=== PATIENT | female | born 1970 | race Caucasian/White ===

== ENCOUNTER → 2019-02-03 | Day surgery (SDC) | payer BC ==
--- NOTE | 2019-02-04 16:41 | PATH ---
Surgical Pathology Report Patient Name: MINDA CRUZ [facility]. Rec. #: [id number] /Age/Gender: 1970 (Age: 48) / F Account: [id number] Location: RADIOLOGY [facility] Taken: 02/03/2019 Received: 02/03/2019 Reported: 02/04/2019 Physicians: Shayna Montelongo M.D. Leslee Benz M.D. Specimen(s) Received BREAST CORE BIOPSY 9:00 Clinical History Palpable mass Mammographic findings/ultrasound findings: Highly suspicious/malignant 2.2 cm suspicious mass Final Diagnosis BREAST, LEFT, 9:00, ULTRASOUND GUIDED CORE BIOPSY: INVASIVE DUCTAL CARCINOMA, MODERATELY DIFFERENTIATED, MEASURING AT LEAST 9 MM IN THIS MATERIAL. Results of Estrogen Receptor (ER) and Progesterone Receptor (MN) studies performed at [facility] are as follows: ER (clone 6F11 mouse monoclonal antibody by [employer]): ~95% nuclear staining with strong intensity (Positive). MN (clone16 mouse monoclonal antibody by Leica): ~65-70% nuclear staining with moderate to strong intensity (Positive). Comment: Results of Her2 (IHC) & Ki-67 studies pending and will be reported separately.Findings discussed with Dr. Montelongo. Positive and negative controls (internal if applicable) show appropriate results. Formalin fixation and cold ischemic times are within current ASCO/CAP recommendations for ER, MN and Her2 testing. Electronically Signed Olivia Beltran M.D. Addendum Reported: 02/05/2019 Addendum Diagnosis Results of Her2 (IHC) & Ki-67 studies performed on block "1" at [place], [place] ([id number]) are as follows: Her2 IHC (EP3 from [employer], formerly known as [id number], using Raymond Polymer Refine detection kit): 1+ (Negative). Ki-67: ~20% (Intermediate proliferative index). Positive and negative controls (internal if applicable) show appropriate results. Olivia Beltran M.D. Gross Description Received in formalin labeled "left 9:00," are 3 ward-yellow, cylindrical portions of fibroadipose tissue ranging from 0.8-1.4 cm in length and averaging 0.1 cm in diameter. The specimens are submitted in toto in one cassette. Time to formalin fixation: Less than one minute Total formalin fixation time: Approximately 6 hours. /02/03/2019 saudi02/03/2019
== END | disposition home or self-care (01) ==
LOC: JMAMMO 11:32 → JRADUS-SUR 11:32 → EDSTATUS 11:45
PROVIDERS: ATTEND Obstetrics & Gynecology
PROC: 0HBU3ZX Excision of Left Breast, Percutaneous Approach, Diagnostic (ICD-10-PCS; principal; 2019-02-03)
DX: C50.912 Malignant neoplasm of unspecified site of left female breast (principal)
CPT/HCPCS: 19083; 76641-TC-LT; 77065-TC; 77066-TC; 87899; 88305-TC; 88342-TC; A4648; G0279-TC

== ENCOUNTER → 2019-03-01 | Day surgery (SDC) | payer BC ==
--- NOTE | 2019-03-03 09:11 | PATH ---
Surgical Pathology Report Patient Name: MINDA CRUZ [facility]. Rec. #: [id number] /Age/Gender: 1970 (Age: 48) / F Account: [id number] Location: [facility] Taken: 03/01/2019 Received: 03/01/2019 Reported: 03/09/2019 Physicians: Bandar Rust M.D. Specimen(s) Received HIGHLY SUSPICIOUS RIGHT BREAST MASS 2:00 O'CLOCK 6FN Clinical History Highly suspicious/malignant Newly diagnosed left breast cancer Final Diagnosis RIGHT BREAST 2:00, 6 CMFN, BIOPSY: INVASIVE DUCTAL CARCINOMA, WELL DIFFERENTIATED, MEASURING 0.4 CM IN LENGTH MEASURED ON THIS SLIDE. DUCTAL CARCINOMA IN SITU (DCIS) PRESENT, INTERMEDIATE NUCLEAR GRADE, CRIBRIFORM TYPE. Results of Estrogen Receptor (ER) and Progesterone Receptor (VA) studies performed on block "1" at [facility] are as follows: ER (clone 6F11 mouse monoclonal antibody by Leica): 100% nuclear staining with strong intensity (Positive). VA (clone16 mouse monoclonal antibody by Leica): 100% nuclear staining with strong intensity (Positive). Positive and negative controls (internal if applicable) show appropriate results. Formalin fixation and cold ischemic times are within current ASCO/CAP recommendations for ER, VA and Her2 testing. Comment: Immunohistochemical stains performed and interpreted at [facility] show the following results: smooth muscle myosin heavy chain and p63 show loss of the myoepithelial cell layer in the areas of invasive carcinoma. E-Cadherin show membranous staining of the tumor cells, supporting a ductal phenotype. Reports for Her 2 and Ki-67 to follow. Electronically Signed Brenda Marcelino M.D. Addendum Reported: 03/03/2019 Addendum Diagnosis Biomarker Studies Results of Her2 (IHC) & Ki-67 studies performed on this specimen at [place], [place] ([id number]) interpreted at [facility] are as follows: Her2 IHC (EP3 from [employer], formerly known as [id number], using Raymond Polymer Refine detection kit): 2+ (equivocal) Ki-67: <15% (low proliferative index) Her2 FISH to follow as an addendum report. Brenda Marcelino M.D. Addendum Reported: 03/09/2019 Addendum Diagnosis Her2 Analysis by FISH performed and interpreted at [facility] ([id number]) shows the following: INTERPRETATION: Negative Probe: Her2 - 2.2 Probe: CEP17 2.1 Ratio: 1.0 Approved scoring guideline >= 2.0 = Amplified <= 2.0 = Not amplified INTERPRETATION: See [facility]ge report for additional details ([id number]) Brenda Marcelino M.D. Gross Description Received in formalin labeled "right breast biopsy 2:00, 6 cmfn," is a 2.4 x 2.0 x 0.3 cm aggregate of multiple ward-yellow, irregular to cylindrical portions of fibroadipose tissue admixed with blood clot. The formalin is filtered and the specimen is entirely submitted in one cassette. Time to formalin fixation: 2 minutes Total formalin fixation time: Approximately 8 hours. 03/01/2019 saudi03/01/2019
== END | disposition home or self-care (01) ==
LOC: FRADUS-SUR 09:00
PROVIDERS: ATTEND Surgery Surgical Oncology
PROC: 0HBT3ZX Excision of Right Breast, Percutaneous Approach, Diagnostic (ICD-10-PCS; principal; 2019-03-01)
DX: C50.211 Malignant neoplasm of upper-inner quadrant of right female breast (principal); Z17.0 Estrogen receptor positive status [ER+]; N63.12 Unspecified lump in the right breast, upper inner quadrant
CPT/HCPCS: 19083; 77065-TC; 87899; 88305-TC; 88341-TC; 88342-TC; A4648

== ENCOUNTER 2019-03-16 07:00 | Inpatient (IN) | payer BC ==
[2019-03-11 13:42] VITALS: BMI 30.5
--- NOTE | 2019-03-11 14:09 | HP ---
Admitting History and Physical - Primary Care Physician PCP: Bandar Rust - Admission Chief Complaint: bilateral breast cancer History of Present Illness: Patient is a 48 yo female who noted left breast dimpling on self exam . Patient had a mammogram (12/2018)that revealed a left 8-9 o'clock highly suspicious lesion approx 2.2 cm. on US. The patient underwent a left core bx on 01/2019 which was c/w invasive ductal carcinoma. ER and MA positive HER 2 negative. An MRI done 02/25/2019 was c/w known cancer as well as suspicious enhancement at the right 1-2 o'clock position. Patient had a core bx of the right 2 o'clock position which was c/w invasive ductal carcinoma and DCIS ER and MA positive HER 2 negative. Patient is now presenting for bilateral mastectomy with bilateral snbx possible andx, lymphoscintogram and reconstruction. History Source: Patient Limitations to Obtaining History: No Limitations - Past Medical History Cardiovascular: Yes: HTN (borderline) ...LMP Comment: 02/18/19 ...: No - Smoking History Smoking history: Current every day smoker Have you smoked in the past 12 months: Yes Aproximately how many cigarettes per day: 10 - Alcohol/Substance Use Hx Alcohol Use: Yes (WINE-2 DAILY) Home Medications - Allergies Allergies/Adverse Reactions: Allergies Allergy/AdvReac Type Severity Reaction Status Date / Time No Known Allergies Allergy Verified 03/11/19 13:23 - Home Medications Home Medications: Ambulatory Orders NK [No Known Home Medication] 03/11/19 Family Disease History - Family Disease History Family Disease History: CA: Grandparent (mat GM breast ca 47) Review of Systems - Review of Systems Constitutional: reports: No Symptoms Cardiovascular: reports: No Symptoms Respiratory: reports: Cough Physical Examination Constitutional: Yes: Well Nourished, Calm Breast(s): Yes: Other (Full ptotic C-cup breasts. The left smaller then right with medial deformity and skin retraction. Palpable mass was noted left breast medially approx 2.5-3 cm. Left axillary fullness was noted. The right side is without suspicious palpable masses or adenopathy.) Problem List - Problems (1) Bilateral breast cancer Code(s): C50.911 - MALIGNANT NEOPLASM OF UNSP SITE OF RIGHT FEMALE BREAST; C50.912 - MALIGNANT NEOPLASM OF UNSPECIFIED SITE OF LEFT FEMALE BREAST Qualifiers: Estrogen receptor status: positive Patient sex: female Assessment/Plan Plan: Bilateral non nipple sparing mastectomy, bilateral snbx with lymphoscintogram, possible andx with reconstruction.
[2019-03-18] MEDS ORDERED: ceFAZolin SODIUM 1 GM VIAL ONE ×2 (09:27→10:36)
[2019-03-18] MEDS ORDERED: GENTAMICIN SO4 80 MG/2 ML VIAL ONE (09:27)
[2019-03-18] MEDS ORDERED: LIDOCAINE 1%/EPI 1:100000 (20 ML MULTI DOSE VIAL) ONE (10:00)
[2019-03-18] MEDS ORDERED: ISOSULFAN BLUE 10 MG/ML VIAL SQ ONE (10:00)
[2019-03-18] MEDS ORDERED: BUPIVACAINE LIPOSOME/PF (EXPAREL) 266 MG/20 ML VIAL ONE (10:12)
[2019-03-18] MEDS ORDERED: fentaNYL CITRATE 250 MCG/5 ML VIAL ONE ×2 (10:33→12:33)
[2019-03-18] MEDS ORDERED: SUCCINYLCHOLINE CHLORIDE 200 MG/10 ML SYRINGE ONE (10:33)
[2019-03-18] MEDS ORDERED: MIDAZOLAM HCL 2 MG/2 ML SINGLE DOSE VIAL ONE (10:33)
[2019-03-18] MEDS ORDERED: PROPOFOL 20 ML ONE (10:33)
[2019-03-18] MEDS ORDERED: ROCURONIUM BROMIDE 50 MG/5 ML SYRINGE ONE ×3 (10:33→13:33)
[2019-03-18] MEDS ORDERED: LIDOCAINE HCL/PF 2% SDV 5ML VIAL ONE (10:35)
[2019-03-18] MEDS ORDERED: HYDROmorphone HCL/PF 1 MG/ML AMP ONE (11:44)
[2019-03-18] MEDS ORDERED: NEOSTIGMINE METHYLSULFATE 0.5 MG/ML - 10 ML MDV ONE (13:34)
[2019-03-18] MEDS ORDERED: GLYCOPYRROLATE 0.2 MG/1 ML VIAL ONE (13:34)
[2019-03-18] MEDS ORDERED: ACETAMINOPHEN 325 MG TABLET (FP) PO PRN (14:09)
[2019-03-18] MEDS ORDERED: ONDANSETRON 4 MG/2 ML VIAL IVPUSH PRN ×2 (14:09→15:29)
[2019-03-18] MEDS ORDERED: DEXTROSE 5%-0.45% SALINE 1,000 ML IV SCH (14:15)
--- NOTE | 2019-03-18 14:56 | OP ---
DATE OF OPERATION: 03/18/2019 PREOPERATIVE DIAGNOSIS: Bilateral breast cancer left 9 o'clock overlapping regions and right upper inner quadrant. POSTOPERATIVE DIAGNOSIS: Bilateral breast cancer left 9 o'clock overlapping regions and right upper inner quadrant. PROCEDURE: Bilateral total mastectomies with bilateral axillary sentinel lymph node biopsies with bilateral prepectoral director of procurement reconstructions by Dr. Desouza. ANESTHESIA: General endotracheal anesthesia. PRIMARY SURGEON: Denis Rust MD BANKING REPRESENTATIVE: LULA Valentine PRIMARY SURGEON: For the bilateral prepectoral implant reconstruction with expanders with Dr. Denis Desouza. There were no complications. HISTORY: Briefly, the patient is a 48-year-old postmenopausal white female of [place] descent. She has a family history with her maternal grandmother who had breast cancer at age 47. The patient noted some medial left breast skin dimpling and underwent mammography showing a suspicious mass on the left breast 8-9 o'clock region measuring about 3.2 cm, and core biopsy showed a moderately differentiated, invasive duct cancer, which was ER/IL positive, HER2/carla negative. MRI showed a separate lesion in the right breast 2 o'clock aspect, and she underwent an ultrasound core biopsy of the right breast 2 o'clock density, which came back as a well-differential invasive duct cancer, which was ER/IL positive, HER2/carla negative. The patient required a mastectomy on the left side due to extent of the cancer and chose to have a mastectomy on the right at the same sitting and was seen by Dr. Desouza who recommended director of procurement reconstruction. DESCRIPTION OF PROCEDURE: The patient was brought in for the procedure on March 18, 2019. She first underwent bilateral lymphoscintigraphies with periareolar injections of Technetium 99 bilaterally in both nipple areolar complexes and was brought to the holding area at [facility]. In the holding area, site verification was made, and informed consent was obtained. She was marked preoperatively by Dr. Desouza for the mastectomies and brought into the operating room. She was laid on the OR table in the supine position. Venodynes were placed on the lower extremities prior to induction. She received 2 g of Ancef prior to incision. She underwent general endotracheal anesthesia. Both breasts were sterilely prepped and draped in the usual fashion. Lymphazurin blue 3 mL was injected intradermally around the periareolar regions of both breast nipple areolar complexes, and massage was instituted. Time-out was performed. The right sentinel lymph node was 1st performed, and an incision was made just below the hair-bearing area of the right axilla, and dissection was undertaken, and 2 blue hot lymph nodes were easily found on the level 1 of the right axilla. The 1st sentinel lymph node had a 10-second gamma count of 16,197 and 2nd sentinel lymph node had a 10-second gamma count of 2279. No other blue or hot nodes were found, and background count after removal of these 2 nodes was 59. They were both sent down to Pathology for frozen section. A nonsentinel node had also been removed and was sent for permanent section in formalin. Frozen section of both sentinel nodes came back negative, so no further nodes were removed. At this point, gloves and instruments were changed, and the left axillary sentinel lymph node biopsy was performed. Incision was made just below the hair-bearing area of the left axilla, and dissection was undertaken, and a blue lymphatic was seen coursing to a blue, hot lymph node in the level 1 region of the left axilla. Had a 10-second gamma count of 3320 and this was sent to Pathology for frozen section. A 2nd hot node was found, which was not blue in the level 2 region of the left axilla with a 10-second gamma count of 3119. Frozen section of both nodes came back negative. There were a couple of firm nodes felt as well in the level 1 region of the left axilla, and these were sent separately to Pathology as nonsentinel lymph nodes. They were not blue and had no hot counts, and these were sent in formalin. Hemostasis was achieved. At this point, the left total mastectomy was 1st performed through an elliptical incision skin-sparing technique encompassing the entire nipple areolar complex. Skin flaps were raised superiorly to the level of the clavicle, medially to the level of the sternum, laterally to the level of the latissimus, and inferiorly below the level of the inframammary fold. The breast was taken out off the pectoralis major muscle from medial to lateral and completely removed intact. It was oriented with a long lateral, short superior suture and weighed to allow for appropriate cosmetic result. Specimen radiograph was performed on the breast showing removal of the clip in question. Hemostasis was achieved, and the skin flaps were trimmed for good cosmetic result. The wound was copiously irrigated with warm, sterile saline. At this point, the right mastectomy was performed again with a skin-sparing technique through an elliptical incision encompassing the entire nipple areolar complex. Separate instruments were used on the right side. Skin flap was raised using electrocautery raising the flap superiorly to the level of the clavicle, medially to the level of the sternum, laterally to the level of the latissimus, and inferiorly below the level of the inframammary fold. The breast was taken out off the pectoralis major muscle from medial to lateral and completely removed intact. It was oriented with a long lateral, short superior suture and weighed to allow for appropriate cosmetic result. Specimen radiograph showed removal of the clip in question. Skin flaps were trimmed for good cosmetic result removing all of the visual breast tissue. Hemostasis was achieved, and the wound was copiously irrigated with warm, sterile saline. At this point, Dr. Desouza became the primary surgeon, and he performed bilateral prepectoral director of procurement reconstructions using air to expand the director of procurement. All wounds will be closed separately by Plastic Surgery using interrupted 3-0 V-Lock suture. Sterile dressing will be applied over the wounds, and drains will be placed around each director of procurement, brought through separate stab incisions on the lateral skin flaps, and secured into place using a 3-0 nylon suture. All sponge and needle counts were correct at the end of the case, and estimated blood loss was about 100 mL at the end of the mastectomy. We did use the Spy skin perfusion device showing good skin perfusion bilaterally. The patient will be extubated and recovered in the post anesthesia care unit and will be admitted postoperatively for pain and wound management. DENIS RUST M.D. [id number]
[2019-03-18] MEDS ORDERED: CEFAZOLIN 1 GM/D5W 1 GM/50 ML BAG IVPB SCH (15:00)
--- NOTE | 2019-03-18 15:09 | OP ---
Operative Note - Note: Operative Date: 03/18/19 Pre-Operative Diagnosis: chest wall abnormality s/p b/l Mastectomies Operation: bilateral immediate breast reconstruction with tissue expanders utilizing alloderm and mesh Post-Operative Diagnosis: Same as Pre-op Surgeon: Shar Desouza Grocery Shopper: Lenore Ramon Anesthesiologist/CROP PULLER: Emiliano Hitchcock Anesthesia: General Estimated Blood Loss (mls): 100 Drains & Tubes with Location: right chest wall JPx2. Left chest wall JPx2 Fluid Volume Replaced (mls): 1,900 Operative Report Dictated: Yes
--- NOTE | 2019-03-18 15:12 | SURG ---
Surgery Obstetric Assistant Note Obstetric Assistant: Lenore Ramon PA-C Date of Service: 03/18/19 Diagnosis: chest wall abnormality s/l b/l mastectomies Procedure: bilateral immediate breast reconstruction with tissue expanders utilizing alloderm and mesh I was present for the entirety of the operative procedure. For further detail, please refer to operative report. Visit type - Case Type Case Type: Scheduled - Emergency Emergency Visit: No - New patient This patient is new to me today: Yes Date on this admission: 03/18/19
[2019-03-18] MEDS ORDERED: PROMETHAZINE HCL 25 MG/1 ML VIAL IVPUSH PRN (15:29)
[2019-03-18] MEDS ORDERED: ONDANSETRON 4 MG/2 ML VIAL ONE (15:54)
[2019-03-18] MEDS: CEFAZOLIN 1 GM/D5W 1 GM/50 ML BAG IVPB SCH (17:16)
[2019-03-18] MEDS: oxyCODONE HCL 5 MG TABLET PO PRN (21:54)
[2019-03-18] MEDS ORDERED: ZOLPIDEM TARTRATE 5 MG TABLET PO PRN (22:00)
[2019-03-19] MEDS: CEFAZOLIN 1 GM/D5W 1 GM/50 ML BAG IVPB SCH ×5 (00:07→23:52)
[2019-03-19] MEDS: oxyCODONE HCL 5 MG TABLET PO PRN ×3 (03:45→20:16)
[2019-03-19 08:35] LABS: HEMATOCRIT 36.5 % (32.4-45.2); HEMOGLOBIN 12.6 GM/dl (10.7-15.3); MCH 34.8 pg (25.7-33.7); MCHC 34.6 g/dl (32.0-36.0); MEAN CELL VOLUME 100.3 fl (80-96); MEAN PLT VOLUME 8.9 fl (7.5-11.1); PLATELET COUNT 230 K/MM3 (134-434); RBC 3.64 M/mm3 (3.60-5.2); RDW 12.7 % (11.6-15.6); WHITE BLOOD COUNT 17.1 K/mm3 (4.0-10.8)
--- NOTE | 2019-03-19 09:19 | PN ---
Progress Note, Physician Chief Complaint: S/P bilateral mastectomy with snbx and tissue or assistant reconstruction POD#1 History of Present Illness: Patient is comfortable this am with good pain control. She has been tolerating po fluids well and has been voiding normally. - Current Medication List Current Medications: Active Medications Acetaminophen (Tylenol -) 650 mg PO Q4H PRN PRN Reason: FEVER Heparin Sodium (Porcine) (Heparin -) 5,000 unit SQ BID SONG Dextrose/Sodium Chloride (D5-1/2ns -) 1,000 mls @ 100 mls/hr IV ASDIR SONG Last Admin: 03/18/19 17:15 Dose: 100 mls/hr Cefazolin Sodium (Ancef 1 Gm Premixed Ivpb -) 1 gm in 50 mls @ 100 mls/hr IVPB Q6H SONG Last Admin: 03/19/19 06:07 Dose: 100 mls/hr Ondansetron HCl (Zofran Injection) 4 mg IVPUSH Q6H PRN PRN Reason: NAUSEA AND/OR VOMITING Last Admin: 03/18/19 15:53 Dose: 4 mg Oxycodone HCl (Roxicodone -) 5 mg PO Q4H PRN PRN Reason: PAIN LEVEL 1-5 Last Admin: 03/18/19 21:54 Dose: 5 mg Oxycodone HCl (Roxicodone -) 10 mg PO Q4H PRN PRN Reason: PAIN LEVEL 6-10 Last Admin: 03/19/19 03:45 Dose: 10 mg Zolpidem Tartrate (Ambien -) 5 mg PO HS PRN PRN Reason: Insomnia - Objective Vital Signs: Vital Signs Temperature 98.2 F 03/19/19 05:00 Pulse Rate 73 03/19/19 05:00 Respiratory Rate 18 03/19/19 05:00 Blood Pressure 103/63 03/19/19 05:00 O2 Sat by Pulse Oximetry (%) 95 03/19/19 05:00 Constitutional: Yes: Well Nourished, Calm Breast(s): Yes: Other (Bilateral flaps are dusky and cool to touch. The steristrips are in place without discharge or erythema. JPs x 4 with serosanginous discharge noted bilaterally.) Labs: CBC, BMP 03/19/19 06:40 Problem List - Problems (1) Bilateral breast cancer Code(s): C50.911 - MALIGNANT NEOPLASM OF UNSP SITE OF RIGHT FEMALE BREAST; C50.912 - MALIGNANT NEOPLASM OF UNSPECIFIED SITE OF LEFT FEMALE BREAST Qualifiers: Estrogen receptor status: positive Patient sex: female Assessment/Plan Assessment Bilateral mastectomy with snbx and tissue or assistant reconstruction POD#1 Plan: OOB today with assistance Barehugger to anterior chest when in bed Continue IV axbx and pain meds as ordered. Case discussed with Dr Rust.
[2019-03-19] MEDS: HEPARIN NA (PORCINE) 5,000 UNITS/ML 1ML VIAL SQ SCH ×3 (09:34→21:38)
--- NOTE | 2019-03-19 09:39 | PN ---
Progress Note (short form) - Note Progress Note: ANESTHESIA POSTOP 48 YO FEMALE POD#1 S/P BL MASTECTOMY, INSERTION OF TISSUE EXPANDERS, RECONSTRUCTION, GETA Patient resting in bed. Tolerating liquid PO. Pain adequately controlled. Reports some pressure but tolerable. VSS, Afebrile Encouraged ambulation and use of IS. Continue current care. No anesthetic complications.
--- NOTE | 2019-03-19 10:00 | PN ---
Progress Note (short form) - Note Progress Note: Surgery S/P bilateral mastectomy with snbx and tissue card player reconstruction POD#1 History of Present Illness: Patient seen and examined at bedside with no complaints. States her pain is controlled. She is tolerating her diet, voiding and denies any CP, SOB, Fever, Chills, N/V. Vital Signs: Vital Signs Temperature 98.2 F 03/19/19 05:00 Pulse Rate 73 03/19/19 05:00 Respiratory Rate 18 03/19/19 05:00 Blood Pressure 103/63 03/19/19 05:00 O2 Sat by Pulse Oximetry (%) 95 03/19/19 05:00 CBC, BMP 03/19/19 06:40 PE: A&Ox3, NAD Breast(s): Bilateral flaps are dusky and cool to touch. Steristrips are in place with surrounding tissue intact and no evidence of tracking erythema or discharge. JPs x 4 with serosanginous discharge noted bilaterally. B/L LE compartments soft, supple and non-tender with +2 DP pulses Problem List - Problems (1) Bilateral breast cancer Assessment/Plan: Bilateral mastectomy with snbx and tissue card player reconstruction POD#1 with elevated WBCs and afebrile. Plan: - Trend daily labs -OOB today with assistance -Barehugger set on high to anterior chest when in bed/chair. -Continue IV axbx and pain meds as ordered. Evaluation and plan discussed with Dr Desouza. Code(s): C50.911 - MALIGNANT NEOPLASM OF UNSP SITE OF RIGHT FEMALE BREAST; C50.912 - MALIGNANT NEOPLASM OF UNSPECIFIED SITE OF LEFT FEMALE BREAST Qualifiers: Estrogen receptor status: positive Patient sex: female
[2019-03-20] MEDS: oxyCODONE HCL 5 MG TABLET PO PRN (00:41)
[2019-03-20 00:49] VITALS: BP 101/68
[2019-03-20 06:25] VITALS: PULSE 73; TEMP 98.6
[2019-03-20] MEDS: CEFAZOLIN 1 GM/D5W 1 GM/50 ML BAG IVPB SCH (06:34)
[2019-03-20] MEDS: HEPARIN NA (PORCINE) 5,000 UNITS/ML 1ML VIAL SQ SCH (09:58)
--- NOTE | 2019-03-24 14:26 | PATH ---
Surgical Pathology Report Patient Name: MINDA CRUZ Med. Rec. #: [id number] /Age/Gender: 1970 (Age: 48) / F Account: [id number] Location: [facility] Taken: 03/18/2019 Received: 03/18/2019 Reported: 03/24/2019 Physicians: Bandar Rust M.D. Specimen(s) Received A: RIGHT AXILLARY SENTINEL NODE # 1(FS) B: RIGHT AXILLARY SENTINEL NODE # 2 (FS) C: LEFT AXILLARY SENTINEL NODE # 1 (FS) D: LEFT AXILLARY SENTINEL NODE # 2 (FS) E: RIGHT AXILLARY NON-SENTINEL NODE F: LEFT AXILLARY NON-SENTINEL NODES G: LEFT BREAST H: LEFT BREAST ANTERIOR MAGIN I: LEFT BREAST DEEP MARGIN J: RIGHT BREAST K: RIGHT BREAST ANTERIOR MARGIN Clinical History Bilateral breast cancer Intraoperative Consult Diagnosis A. Right axillary sentinel node #1, frozen section: One lymph node negative for carcinoma (0/1). B. Right axillary sentinel node #2, frozen section: One lymph node negative for carcinoma (0/1). C. Left axillary sentinel node #1, frozen section: One lymph node negative for carcinoma (0/1). D. Left axillary sentinel node #2, frozen section: One lymph node negative for carcinoma (0/1). Dr. Bautista, 03/18/19 Final Diagnosis A. lymph node, right axillary sentinel #1, excision (FS): One lymph node, negative for metastatic carcinoma (0/1). B.lymph node, right axillary sentinel #2, excision (FS): One lymph node, negative for metastatic carcinoma (0/1). C. lymph node, left axillary sentinel #1, excision (FS): One lymph node, negative for metastatic carcinoma (0/1). D. lymph node, LEFT axillary sentinel #2, excision (FS): One lymph node, negative for metastatic carcinoma (0/1). e. lymph node, right axillary non-sentinel, excision : One lymph node, negative for metastatic carcinoma (0/1). F. lymph nodeS, LEFt axillary non-sentinel, excision : Metastatic carcinoma involving one of three lymph nodes (1/3); the largest focus of metastatic carcinoma measures 0.4 mm in greatest dimension (micrometastasis). No extranodal extension is identified. G. breast, left, total mastectomy: Invasive ductal carcinoma, moderately differentiated (tubule score: 3/3, nuclear grade: 2/3, mitotic score: 2/3, total score: 7/9; Venetie grade 2), measuring 2.7 cm in greatest dimension, MICROSCOPICALLY, present in the lower inner quadrant (LIQ). Invasive carcinoma EXTENDS TO THE DEEP MARGIN AND involves skeletal muscle. see specimens H and I for final margins. Ductal carcinoma in situ (DCIS), Micropapillary and cribriform type, intermediate nuclear grade with moderate necrosis is present admixed with invasive carcinoma in the LIQ and focally away from it in the upper inner quadrant (UIQ). Nipple, skin and anterior soft tissue margin are uninvolved by carcinoma. lymphovascular invasion is IDENTIFIED. One benign intramammary lymph node (0/1). Pathologic stage (pTNM): pT2 pN1(mi). see also invasive carcinoma case Summary below. H. breast, left, anterior margin, excision: Benign fibroadipose tissue. I. breast, left, deep margin, excision: benign fibroadipose tissue and skeletal muscle; negative for carcinoma. J. breast, right, total mastectomy: Invasive ductal carcinoma, well differentiated (tubule score: 2/3, nuclear grade: 2/3, mitotic score: 1/3, total score: 5/9; Venetie grade 1), present in the upper inner quadrant (uiq), measuring 0.8 cm in greatest dimension, microscopically. Ductal carcinoma in situ (DCIS), Micropapillary, flat and cribriform type, intermediate nuclear grade IS present admixed with invasive carcinoma. Lobular carcinoma in situ (LCIS), classical type. Surgical margins are uninvolved by carcinoma; invasive carcinoma is aT 5 mm from the closest (anterior) margin and DCIS is at 2 mm from the closest (anterior) margin. see also specimen K For final anterior margin. Nipple and skin are uninvolved by carcinoma. No lymphovascular invasion is identified. Remaining breast tissue shows sclerosing adenosis, columnar cell change, small fibroadenoma and associated calcifications. PRIOR BIOPSY SITE CHANGES ARE IDENTIFIED. Pathologic stage (pTNM): pT1b pN0. se also invasive carcinoma Case summary below. K. Breast, right, anterior margin, excision: Benign fibroadipose tissue. Comments Breast Invasive Carcinoma: Surgical Pathology Case Summary (Based on AJCC TNM 8 th edition) LEFT BREAST Procedure __X_ Total mastectomy (including nipple-sparing and skin-sparing mastectomy) Specimen Laterality _X_ Left Tumor Size _X_ Greatest dimension of largest invasive focus >1 mm (millimeters): 27 mm Histologic Type _X_ Invasive carcinoma of no special type (ductal, not otherwise specified) Histologic Grade (Venetie Histologic Score) Glandular (Acinar)/Tubular Differentiation _X_ Score 3 (<10% of tumor area forming glandular/tubular structures) Nuclear Pleomorphism _X_ Score 2 Mitotic Rate _X_ Score 2 Overall Grade _X_ Grade 2 (scores of 6 or 7) Tumor Focality _X_ Single focus of invasive carcinoma Ductal Carcinoma In Situ (DCIS) _X_ DCIS is present in specimen _X_ Negative for extensive intraductal component (EIC) Tumor Extension Skeletal Muscle _X_ Carcinoma invades skeletal muscle Note: Invasion into pectoralis muscle is not considered chest wall invasion, and cancers are not classified as T4a unless there is invasion deeper than this muscle. Margins Invasive Carcinoma Margins _X_ Uninvolved by invasive carcinoma _X_ Cannot be determined: invasive carcinoma extends to the deep margin in mastectomy specimen (G). Final deep margin (I) is uninvolved by carcinoma. DCIS Margins _X_ Uninvolved by DCIS Distance from closest margin (millimeters): 3 mm from deep margin in mastectomy specimen (G). Final deep margin (I) is uninvolved by DCIS. Regional Lymph Nodes _X__ Involved by tumor cells Number of Lymph Nodes with Macrometastases (>2 mm): 0 Number of Lymph Nodes with Micrometastases (>0.2 mm to 2 mm and/or >200 cells): 1 Number of Lymph Nodes with Isolated Tumor Cells (=0.2 mm and =200 cells): 0 Size of Largest Metastatic Deposit (millimeters): 0.4 mm Extranodal Extension: _X_ Not identified Treatment Effect _X_ No known presurgical therapy Lymphovascular Invasion _X_ Present Pathologic Stage Classification (pTNM, AJCC 8th Edition) Primary Tumor (Invasive Carcinoma) (pT) _X_ pT2: Tumor >20 mm but =50 mm in greatest dimension Regional Lymph Nodes (pN) Category (pN) _X_ pN1mi: Micrometastases (approximately 200 cells, larger than 0.2 mm, but none larger than 2.0 mm Biomarker Studies Results of ER and NH studies performed on prior biopsy ([id number]) at [facility] are as follows: ER (clone 6F11 mouse monoclonal antibody by [employer]):95 % nuclear staining with strong intensity (positive). NH (clone16 mouse monoclonal antibody by [employer]) : 65-70 % nuclear staining with moderate to strong intensity (positive). Results of Her2 (IHC) & Ki-67 studies performed on prior biopsy ([id number]) at [place], [place] ([id number]) are as follows: Her2 IHC (EP3 from [employer], formerly known as [id number], using Raymond Polymer Refine detection kit): 1+ (negative). Ki67: ~20% (intermediate proliferative index). Breast Invasive Carcinoma: Surgical Pathology Case Summary (Based on AJCC TNM 8 th edition) RIGHT BREAST: Procedure _X_ Total mastectomy (including nipple-sparing and skin-sparing mastectomy) Specimen Laterality _X_ Right Tumor Size _X_ Greatest dimension of largest invasive focus >1 mm (millimeters): 8 mm Histologic Type _X_ Invasive carcinoma of no special type (ductal, not otherwise specified) Histologic Grade (Venetie Histologic Score) Glandular (Acinar)/Tubular Differentiation _X_ Score 2 (10% to 75% of tumor area forming glandular/tubular structures) Nuclear Pleomorphism _X_ Score 2 Mitotic Rate _X_ Score 1 Overall Grade _X_ Grade 1 (scores of 3, 4, or 5) Tumor Focality _X_ Single focus of invasive carcinoma Ductal Carcinoma In Situ (DCIS) _X_ DCIS is present in specimen _X_ Negative for extensive intraductal component (EIC) Margins Invasive Carcinoma Margins _X_ Uninvolved by invasive carcinoma Distance from closest margin (millimeters): 5 mm from closest anterior margin in mastectomy specimen (J). Final anterior margin (K) is negative for carcinoma. DCIS Margins _X_ Uninvolved by DCIS Distance from closest margin (millimeters): 2 mm from closest anterior margin in mastectomy specimen (J). Final anterior margin (K) is negative for DCIS. Regional Lymph Nodes _X_ Uninvolved by tumor cells Number of Lymph Nodes Examined: 3 Number of Blodgett Nodes Examined: 2 Treatment Effect _X_ No known presurgical therapy Lymphovascular Invasion _X_ Not identified Pathologic Stage Classification (pTNM, AJCC 8th Edition) Primary Tumor (Invasive Carcinoma) (pT) _X_ pT1b: Tumor >5 mm but =10 mm in greatest dimension Regional Lymph Nodes (pN) Category (pN) _X_ pN0: No regional lymph node metastasis identified or ITCs only Biomarker Studies Results of ER and NH studies performed on prior biopsy ([id number]) at [facility] are as follows: ER (clone 6F11 mouse monoclonal antibody by [employer]): 100 % nuclear staining with strong intensity (positive). NH (clone16 mouse monoclonal antibody by [employer]) : 100 % nuclear staining with strong intensity (positive). Results of Her2 (IHC) & Ki-67 studies performed on prior biopsy ([id number]) at [place], [place] ([id number]) are as follows: Her2 IHC (EP3 from [employer], formerly known as [id number], using Raymond Polymer Refine detection kit): 2+ (equivocal). Ki67: < 15% (low proliferative index). Results of Her2 FISH studies performed on prior biopsy ([id number]) at [place], [place] ([id number]) are as follows: Her2: 2.2 CEP17: 2.1 Ratio: 1.0 Interpretation: negative. Electronically Signed Lenore Etienne M.D. Gross Description A. Received fresh for frozen section labeled "right axillary sentinel node #1" is a pink-ward lymph node measuring 1.5 x 1.2 x 0.8 cm. The specimen is bisected and frozen section is performed on the specimen. The frozen section residue is entirely submitted in one cassette. B. Received fresh for frozen section labeled "right axillary sentinel node #2" is a pink-ward lymph node measuring 1 x 0.7 x 0.7 cm. The specimen is bisected and frozen section is performed on the specimen. The frozen section residue is entirely submitted in one cassette. C. Received fresh for frozen section labeled "left axillary sentinel node #1" is a pink-ward lymph node measuring 0.7 x 0.5 x 0.4 cm. Frozen section is performed on the specimen. The frozen section residue is entirely submitted in one cassette. D. Received fresh for frozen section labeled "left axillary sentinel node #2" is a pink-ward lymph node measuring 0.7 x 0.5 x 0.3 cm. Frozen section is performed on the specimen. The frozen section residue is entirely submitted in one cassette. E. Received in formalin labeled "right axillary non-sentinel node" is a 1.5 x 1.0 x 0.6 cm, ward, irregular lymph node with attached fat. The specimen is entirely submitted one cassette. F. Received in formalin labeled "left axillary non-sentinel nodes" are 3 irregular ward lymph nodes with attached fat, ranging from 1.3-2.5 cm in greatest dimension. The specimen is entirely submitted in 3 cassettes as follows: F1-F3- one bisected lymph node, each. G. Received in formalin, labeled "left breast" is a 788 gram, 17.0 x 17.0 x 5.0 cm mastectomy specimen with a short suture marking the superior aspect and a long suture marking the lateral aspect, per the surgeon. The anterior surface displays a 6 x 4 cm ward, elliptical portion of skin with a 1.5 cm in diameter nipple. The deep margin is inked black and the anterior soft tissue margin is inked blue. The specimen is serially sectioned from medial to lateral. Sectioning reveals a 3.4 x 3.3 x 3 cm ward, firm mass in the lower inner quadrant (LIQ). The mass abuts the deep margin and is at 1 cm from anterior soft tissue margin. The remaining breast parenchyma displays multifocal dense white fibrous tissue. Equipment Maint Tech sections are submitted in 14 cassettes as follows: 1-serially sectioned nipple; 2-skin; 3-mass, full-face section with deep margin; 4-5- bisected section of mass, with deep margin; 6-7- bisected section of mass with anterior and deep margins, 8- breast parenchyma adjacent to mass, LIQ; 9-10-upper inner quadrant; 11-12-lower outer quadrant; 13-14- upper outer quadrant. Time to formalin fixation: Not given Total formalin fixation time: Approximately 36 hours. H. Received in formalin labeled "left anterior margin" is a 6 x 4 x 1 cm portion of fibroadipose tissue with a suture marking the biopsy cavity side, per surgeon. The new margin is inked in blue and the specimen is serially sectioned. Sectioning reveals predominantly adipose tissue. Entirely submitted in 9 cassettes. I. Received in formalin labeled "left deep margin" is a 2.5 x 2.5 x 1 cm portion of fibroadipose tissue with a suture marking the biopsy cavity side, per surgeon. The new margin is inked in blue and the specimen is serially sectioned. Sectioning reveals adipose tissue and brown ward tissue. Entirely submitted in 2 cassettes. J. Received in formalin, labeled "right breast" is a 799 gram, 18.0 x 17.0 x 6.0 cm. mastectomy specimen and a 10 x 8 x 2 cm aggregate of undesignated fibroadipose tissue. A short suture syed the superior aspect and a long suture syed the lateral aspect, per the surgeon. The anterior surface displays a 6 x 5 cm ward, elliptical portion of skin with a 1.5 cm in diameter nipple. The deep margin is inked black and the anterior soft tissue margin is inked blue. The specimen is serially sectioned from medial to lateral. Sectioning reveals a ward firm mass measuring 1.0 x 1.0 x 0.5 cm in the upper inner quadrant (UIQ). The mass shows associated hemorrhage and fibrosis consistent with prior biopsy and a metallic clip is identified. The mass abuts the anterior margin. The remainder of breast parenchyma shows multifocal dense fibrous to firm nodular tissue. Equipment Maint Tech sections are submitted in 17 cassettes as follows: 1-serially sectioned nipple; 2-skin; 3,4-mass with anterior margin; 5-7- fibrous to firm tissue surrounding mass; 8-11- fibrous to firm tissue, LIQ; 12-13- fibrous to firm tissue, LOQ; 14-15- fibrous to firm tissue, UOQ; 16-17- undesignated fibroadipose tissue fragments. Time to formalin fixation: Not given Total formalin fixation time: Approximately 36 hours. K. Received in formalin labeled "right anterior margin" is a 12 x 8 x 2 cm portion of fibroadipose tissue with a suture marking the biopsy cavity side, per surgeon. The new margin is inked in blue and the specimen is serially sectioned. Sectioning reveals predominantly adipose tissue. Equipment Maint Tech sections are submitted in 6 cassettes. MLSManan/03/20/2019 sanalexandra/03/18/2019
--- NOTE | 2019-04-01 09:48 | OP ---
DATE OF OPERATION: 03/18/2019 PREOPERATIVE DIAGNOSES: 1. Bilateral acquired chest wall deformity status post bilateral mastectomy. 2. Personal history of genetic carcinoma. 3. Absent bilateral breasts. POSTOPERATIVE DIAGNOSES: 1. Bilateral acquired chest wall deformity status post bilateral mastectomy. 2. Personal history of genetic carcinoma. 3. Absent bilateral breasts. OPERATIVE PROCEDURE: 1. Right breast immediate reconstruction utilizing immediate insertion of tissue green energy marketing analyst, AlloDerm reconstruction and mesh placement. 2. Left breast immediate reconstruction utilizing immediate insertion of tissue green energy marketing analyst, AlloDerm reconstruction and mesh placement. 3. Intravenous injection of indocyanine green dye and intraoperative diagnostic evaluation of noncoronary intraoperative fluorescein vascular angiography x2 as well as interpretation of angiogram intraoperatively. OPERATIVE INDICATION: Patient is a 48-year-old female who was brought to the operating room by Dr. Bandar Rust for bilateral mastectomy for significant genetic history of breast carcinoma. The patient elected to undergo bilateral mastectomy with the above reconstructive procedure in a prepectoral position. The risks and benefits of surgical versus nonsurgical alternatives as well as material complications were described to the patient on multiple occasions preoperatively. She was marked in the standing position preoperatively in the holding area and all questions were asked and answered. OPERATIVE PROCEDURE IN DETAIL: The patient was taken to the operating room by Dr. Rust where she was placed supine on the operating room table. Both arms were extended and padded. Venodyne boots were placed and all areas were protected and padded. Dr. Rust will dictate his portion of the operation under separate cover. At this point Dr. Rust performed bilateral mastectomy with an inframammary incision on both right and left breasts which will be dictated separately. Upon completion of the mastectomies the wounds were copiously irrigated and hemostasis was meticulously obtained throughout the pocket and both chest hardy. On the back table as the mastectomies were being performed I created reconstructive procedures by utilizing a full coverage reconstructive tissue green energy marketing analyst. The patient had bilateral tissue expanders placed with SSP AlloX2 tissue expanders with low pole plus mid height profile was used for the reconstruction. These were filled with 240 cc on both breasts. The patient also had full anterior coverage of the device with AlloDerm and Tourjiveen ProGrip mesh was placed in a posterior fashion cutting out the mesh slightly larger than the back side of the tissue green energy marketing analyst. The gripping portion of the mesh was placed away from the tissue green energy marketing analyst in order to adhere to the pectoralis muscle. At this point a sheet of AlloDerm was selected. In this case a 16 x 20 perforated thick AlloDerm was used to cover the anterior surface of the entire tissue green energy marketing analyst and then was sutured down to the underlying mesh over the tissue green energy marketing analyst and suturing it on the back side. Multiple 2-0 Vicryl sutures were placed around the circumference of the tissue green energy marketing analyst creating an entire enclosure for the new tissue green energy marketing analyst device. Triple-antibiotic solution and Betadine were used to cover this device and the AlloDerm was soaked in triple-antibiotic solution x3. Both devices were created on the back table and ready for reconstruction. The exact same procedure was carried out symmetrically on the opposite left side in order to create the same size SSP AlloX2 device with the same size tissue green energy marketing analyst. Once the mastectomies were completed, the left breast was attended to first. The device was transferred to the left chest wall and the rim which extended beyond the tissue green energy marketing analyst itself was then attached to the chest wall using 0 V-Loc suture in a running fashion from the medial to the lateral side to tack the mesh down to the pectoralis muscle at the inframammary fold and laterally and medially in order to prevent motion of the device. Good shape and contour were seen in the shape of the breast at this point. Skin flaps showed viability. The Spy intraoperative angiogram was performed at this point by injecting 4 mL of indocyanine green dye into the intravascular system and then an intraoperative angiogram was used to show good blood flow to the skin and nipple-areolar complex on both chest hardy. This was repeated before placement of the tissue green energy marketing analyst and then after the tissue green energy marketing analyst was placed. Both showed good blood flow. The Spy imaging system was brought into the field. The skin flowed to the right and left breasts and the nipple-areolar complex, and the entire skin flaps were evaluated and seen to be viable with good blood flow. The patient had the 2nd tissue green energy marketing analyst placed into the right chest wall in the exact same fashion, suturing a 0 V-Loc suture in running fashion from medial to lateral, attaching the posterior aspect of the mesh down to the chest wall. Once the tissue expanders were verified in good position and shape and contour were seen the skin flaps were draped over the tissue green energy marketing analyst and down into their new anatomic position. The skin edges were trimmed. A 15 Reggie drain was threaded through a separate stab wound around the entire circumference of the tissue green energy marketing analyst itself and sutured into position. Again, copious irrigation and hemostasis were obtained and then attention was turned to the closure. Using 3-0 PDS suture on the deep dermis and tissue the deep layer was repaired with interrupted sutures and then a 4-0 Biosyn suture was used in a subcuticular fashion to repair the skin. Biopatch and Dermabond with Steri-Strips were placed over the drain and suture line. A compression dressing with fluff dressings, ABD gauze and a Surgi-Bra were placed. She was then awakened, extubated and transferred to the recovery room in satisfactory condition and showed excellent contour and excellent result at this point. ADDENDUM: The patient's breast tissue removal was left breast 706 g of tissue, right breast 779 g of tissue by Dr. Rust. Leslee [id number]
== END 2019-03-20 12:13 | disposition home or self-care (01) | DRG 581 ==
LOC: FM/S 03-18 09:20
PROVIDERS: ADMIT Surgery Surgical Oncology; ATTEND Surgery Surgical Oncology
PROC: 0HHV0NZ Insertion of Tissue Expander into Bilateral Breast, Open Approach (ICD-10-PCS; 2019-03-18)
PROC: 0HRV0JZ Replacement of Bilateral Breast with Synthetic Substitute, Open Approach (ICD-10-PCS; 2019-03-18)
PROC: 4A1GXSH Monitoring of Skin and Breast Vascular Perfusion using Indocyanine Green Dye, External Approach (ICD-10-PCS; 2019-03-18)
PROC: 0HTV0ZZ Resection of Bilateral Breast, Open Approach (ICD-10-PCS; principal; 2019-03-18 11:27)
PROC: 07B60ZX Excision of Left Axillary Lymphatic, Open Approach, Diagnostic (ICD-10-PCS; 2019-03-18 11:27)
PROC: 07B50ZX Excision of Right Axillary Lymphatic, Open Approach, Diagnostic (ICD-10-PCS; 2019-03-18 11:27)
DX: C50.211 Malignant neoplasm of upper-inner quadrant of right female breast (principal); C50.212 Malignant neoplasm of upper-inner quadrant of left female breast; M95.4 Acquired deformity of chest and rib; Z15.01 Genetic susceptibility to malignant neoplasm of breast
CPT/HCPCS: 36415; 78195-TC; 84703; 85027; 88307-TC; 88331-TC; 94760; A9541; J1644

== ENCOUNTER 2019-04-15 06:22 | Day surgery (SDC) | payer BC ==
[2019-04-15 06:48] VITALS: BMI 29.2
[2019-04-15] MEDS ORDERED: ceFAZolin SODIUM 1 GM VIAL ONE (07:16)
[2019-04-15] MEDS ORDERED: GENTAMICIN SO4 80 MG/2 ML VIAL ONE (07:16)
[2019-04-15] MEDS ORDERED: BUPIVACAINE HCL/PF 0.5% (5MG/ML) 10 ML VIAL ONE (07:17)
[2019-04-15] MEDS ORDERED: LIDOCAINE 1%/EPI 1:100000 (20 ML MULTI DOSE VIAL) ONE (07:17)
[2019-04-15] MEDS ORDERED: PROPOFOL 20 ML ONE ×2 (07:33)
[2019-04-15] MEDS ORDERED: SUCCINYLCHOLINE CHLORIDE 200 MG/10 ML SYRINGE ONE (07:33)
[2019-04-15] MEDS ORDERED: MIDAZOLAM HCL 2 MG/2 ML SINGLE DOSE VIAL ONE (07:33)
[2019-04-15] MEDS ORDERED: ePHEDrine SULFATE 50 MG/1 ML AMPULE ONE (08:15)
[2019-04-15] MEDS ORDERED: LIDOCAINE HCL 2% JELLY (5 ML/TUBE) ONE (08:51)
[2019-04-15] MEDS ORDERED: LIDOCAINE HCL/PF 2% SDV 5ML VIAL ONE (08:51)
[2019-04-15] MEDS ORDERED: KETOROLAC TROMETHAMINE 30 MG/1 ML VIAL ONE (08:51)
[2019-04-15] MEDS ORDERED: DEXAMETHASONE SOD PHOSPHATE 4 MG/1 ML VIAL ONE (08:51)
[2019-04-15] MEDS ORDERED: ONDANSETRON 4 MG/2 ML VIAL ONE (08:51)
[2019-04-15] MEDS ORDERED: VANCOMYCIN 1,000 MG VIAL (RESTRICTED TO ID ONLY) ONE (08:51)
[2019-04-15] MEDS ORDERED: PROMETHAZINE HCL 25 MG/1 ML VIAL IVPUSH PRN (09:15)
[2019-04-15] MEDS ORDERED: ONDANSETRON 4 MG/2 ML VIAL IVPUSH PRN (09:15)
[2019-04-15] MEDS ORDERED: oxyCODONE HCL 5 MG TABLET PO PRN ×2 (09:15)
[2019-04-15 09:55] VITALS: TEMP 97.8
--- NOTE | 2019-04-15 10:00 | OP ---
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 Post-Operative Diagnosis: Same as Pre-op Surgeon: Shar Desouza Manager Interventional: Surjit To Anesthesiologist/NURSING PROFESSOR: Sacha Clifford Anesthesia: General Estimated Blood Loss (mls): 10 Fluid Volume Replaced (mls): 800 Operative Report Dictated: Yes
--- NOTE | 2019-04-15 10:01 | SURG ---
Surgery Health Care Liaison Note Health Care Liaison: Surjit To PA-C Date of Service: 04/15/19 Diagnosis: Necrotic Rt breast tissue s/p breast reconstruction Procedure: Debridement of Right breast, Capsulectomy, Removal and replacement of Right tissue sap bi developer. I was present for the entirety of the operative procedure. For further detail, please refer to operative report.
[2019-04-15 10:55] VITALS: BP 120/67; PULSE 72
--- NOTE | 2019-04-16 18:31 | PATH ---
Surgical Pathology Report Patient Name: MINDA CRUZ Med. Rec. #: [id number] /Age/Gender: 1970 (Age: 48) / F Account: [id number] Location: [facility] AMBULATORY Taken: 04/15/2019 Received: 04/15/2019 Reported: 04/16/2019 Physicians: Shar Desouza Specimen(s) Received A: BREAST TISSUE, RIGHT B: TISSUE TOURISM RADIO PRESENTER Clinical History History of breast cancer Open wound right Final Diagnosis A. BREAST TISSUE, RIGHT, EXCISION: SKIN AND UNDERLYING SUBCUTANEOUS TISSUE WITH MARKED ACUTE AND CHRONIC INFLAMMATION AND CHANGES OF PRIOR PROCEDURE. NO BREAST TISSUE IDENTIFIED. B. EXPLANTED TISSUE TOURISM RADIO PRESENTER, REMOVAL: TISSUE TOURISM RADIO PRESENTER. MACROSCOPIC DIAGNOSIS. Electronically Signed Olivia Beltran M.D. Gross Description A. Received in formalin labeled "right breast tissue" is an ellipse of ward skin and underlying subcutaneous tissue measuring 12 x 2.5 cm, excised to a depth of 0.5 cm. There is a 10 cm wound/incision with associated sutures, traversing the length of the skin. 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 Received fresh labeled "explanted valve inserter" is an intact clear tissue valve inserter measuring 13 x 11 x 3.5 cm. No soft tissue identified, for gross examination only. TIM/04/15/2019 rosa/04/15/2019
== END 2019-04-15 11:04 | disposition home or self-care (01) ==
LOC: FASU 06:22
PROVIDERS: ATTEND Plastic Surgery
PROC: 0HPT0NZ Removal of Tissue Expander from Right Breast, Open Approach (ICD-10-PCS; 2019-04-15)
PROC: 05H533Z Insertion of Infusion Device into Right Subclavian Vein, Percutaneous Approach (ICD-10-PCS; principal; 2019-04-15 08:05)
PROC: B516ZZA Fluoroscopy of Right Subclavian Vein, Guidance (ICD-10-PCS; 2019-04-15 08:05)
DX: C50.211 Malignant neoplasm of upper-inner quadrant of right female breast (principal); C50.212 Malignant neoplasm of upper-inner quadrant of left female breast; Z17.0 Estrogen receptor positive status [ER+]; Z91.013 Allergy to seafood; Z80.3 Family history of malignant neoplasm of breast; F17.210 Nicotine dependence, cigarettes, uncomplicated
CPT/HCPCS: 11971; 36561; C1788; 81025; 87070; 87102; 87205; 87210; 88300-TC; 88305-TC; 94760

== ENCOUNTER 2019-05-20 06:18 | Day surgery (SDC) | payer BC ==
--- NOTE | 2019-05-19 10:06 | HP ---
Admitting History and Physical - Primary Care Physician PCP: Bandar Rust - Admission Chief Complaint: bilateral breast cancer History of Present Illness: Patient is a 48 yo female S/P bilateral mastectomy with prepectoral salesperson china and glassware reconstuction (02/2019) sec to bilateral breast cancer. Patient has had wound infections/revisions of the right chest and currently continues to have non purulent drainage and erythema of the skin. Patient also needs chemotherapy. She is now presenting for removal of salesperson china and glassware and placement of infusaport in preparation for chemo tx. History Source: Patient Limitations to Obtaining History: No Limitations - Past Medical History Cardiovascular: Yes: HTN (borderline) ...LMP: 04/09/19 Heme/Onc: Yes: Cancer (breast cancer (bilateral -02/2019)) - Smoking History Smoking history: Current every day smoker Have you smoked in the past 12 months: Yes Aproximately how many cigarettes per day: 10 - Alcohol/Substance Use Hx Alcohol Use: Yes (WINE-2 DAILY) Home Medications - Allergies Allergies/Adverse Reactions: Allergies Allergy/AdvReac Type Severity Reaction Status Date / Time No Known Allergies Allergy Verified 04/13/19 12:50 - Home Medications Home Medications: Ambulatory Orders Cefadroxil 500 mg PO BID #20 capsule 03/19/19 Oxycodone HCl/Acetaminophen [Percocet 5-325 mg Tablet] 1 tab PO Q6H PRN #10 tablet MDD 4 04/15/19 Family Medical History Family Hx Cancer: Grandmother (maternal) (breast cancer at 47) Review of Systems - Review of Systems Constitutional: reports: No Symptoms Breasts: reports: See HPI, Skin Changes Physical Examination Constitutional: Yes: Well Nourished, Calm Breast(s): Yes: Other (Right breast flap with erythema and clear yellow discharge noted. Slight wound breakdown noted.) Problem List - Problems (1) Bilateral breast cancer Code(s): C50.911 - MALIGNANT NEOPLASM OF UNSP SITE OF RIGHT FEMALE BREAST; C50.912 - MALIGNANT NEOPLASM OF UNSPECIFIED SITE OF LEFT FEMALE BREAST Qualifiers: Estrogen receptor status: positive Patient sex: female Assessment/Plan Plan: Removal of right tissue salesperson china and glassware and right lifeport placement.
[2019-05-19 10:08] VITALS: BMI 30.5
[2019-05-20] MEDS ORDERED: HEPARIN NA (PORCINE) 5,000 UNITS/ML 1ML VIAL ONE (07:27)
[2019-05-20] MEDS ORDERED: LIDOCAINE HCL 1%, 10 MG/ML (20ML VIAL) ONE (07:27)
[2019-05-20] MEDS ORDERED: MIDAZOLAM HCL 2 MG/2 ML SINGLE DOSE VIAL ONE (07:31)
[2019-05-20] MEDS ORDERED: PROPOFOL 20 ML ONE (07:31)
[2019-05-20] MEDS ORDERED: ONDANSETRON 4 MG/2 ML VIAL ONE ×2 (08:08→09:41)
[2019-05-20] MEDS ORDERED: DEXAMETHASONE SOD PHOSPHATE 4 MG/1 ML VIAL ONE (08:08)
[2019-05-20] MEDS ORDERED: ceFAZolin SODIUM 1 GM VIAL ONE (08:08)
[2019-05-20] MEDS ORDERED: BUPIVACAINE HCL/PF 2.5 MG/ML - 30 ML VIAL IJ ONE (08:31)
[2019-05-20] MEDS ORDERED: BUPIVACAINE HCL/PF 0.25% (2.5MG/ML) 10 ML VIAL IJ ONE (09:20)
[2019-05-20] MEDS ORDERED: ONDANSETRON 4 MG/2 ML VIAL IVPUSH PRN ×2 (09:59→10:03)
[2019-05-20] MEDS ORDERED: oxyCODONE HCL 5 MG TABLET PO PRN (09:59)
[2019-05-20] MEDS ORDERED: LACTATED RINGERS SOLUTION 1,000 ML IV SCH (10:00)
[2019-05-20] MEDS ORDERED: KETOROLAC TROMETHAMINE 30 MG/1 ML VIAL ONE (10:02)
[2019-05-20] MEDS ORDERED: KETOROLAC TROMETHAMINE 30 MG/1 ML VIAL IVPUSH PRN (10:03)
[2019-05-20] MEDS ORDERED: DEXTROSE 5%-0.45% SALINE 1,000 ML IV SCH (10:15)
[2019-05-20] MEDS ORDERED: ACETAMINOPHEN 1000 MG/100 ML VIAL (NON FORMULARY) IVPB ONE ×2 (10:40→12:00)
[2019-05-20] MEDS ORDERED: ACETAMINOPHEN INJECTION 100 ML IVPB ONE (10:51)
[2019-05-20 11:30] VITALS: TEMP 98.4
[2019-05-20 12:12] VITALS: BP 110/66; PULSE 72
--- NOTE | 2019-05-20 16:44 | OP ---
DATE OF OPERATION: 05/20/2019 PREOPERATIVE DIAGNOSIS: Bilateral breast cancer upper inner quadrants. POSTOPERATIVE DIAGNOSIS: Bilateral breast cancer upper inner quadrants. PROCEDURE: Placement of a right subclavian vein single-lumen Port-A-Cath using the Seldinger technique and removal of right chest wall barrel dedenting machine operator. ANESTHESIA: General laryngeal mask airway anesthesia. PRIMARY SURGEON: Denis Seals MD COGENERATION TECHNICIAN: LULA Raygoza There were no complications. INDICATIONS: Briefly, the patient is a 48-year-old G1, P0 premenopausal white female of [place] descent with a family history with her mother who had breast cancer around age 47. The patient noted some dimpling on the medial aspect of the left breast in November 2018, and mammography and ultrasound showed a 3.2-cm mass in the left breast 9 o'clock region. Ultrasound-guided core biopsy showed a moderately differentiated, invasive duct cancer and then MRI showed another area of suspicion in the right breast 2 o'clock region, and core biopsy of that showed a separate infiltrating ductal cancer in the right breast upper inner quadrant. She underwent bilateral total mastectomies and sentinel lymph node biopsies with prepectoral barrel dedenting machine operator reconstructions on March 18, 2019. The right breast cancer was an 8-mm well differentiated cancer with 3 negative nodes, and the left breast was a moderately differentiated invasive duct cancer, and she had 2 negative nodes, but there was a separate nonsentinel node, which had a 0.4-mm micrometastasis. She was noted to have some slight superficial muscle invasion on the left side as well of the cancer measuring 2.7 cm. All cancers were ER/IN positive, HER2/carla negative. The patient was seen by medical oncology and felt to require chemotherapy but had complications with the right barrel dedenting machine operator, which required removal and exchange with a washout procedure. She continued to have redness and drainage around the right barrel dedenting machine operator, and it was felt that to proceed with chemotherapy we needed to remove the right barrel dedenting machine operator and she needed a Port-A-Cath for chemotherapy. She was brought in for the procedure on May 20, 2019. DESCRIPTION OF PROCEDURE: The patient was seen in the holding area, and site verification was made, and informed consent was obtained. She was brought into the operating room and laid on the OR table in a supine position. Venodynes were placed on the lower extremities prior to induction. She received 2 g of Ancef prior to incision. She underwent general laryngeal mask airway anesthesia. The right chest wall and upper neck were sterilely prepped and draped in the usual fashion. The right subclavian Port-A-Cath was 1st performed. She had a rolled sheet placed under her midline spine, and her arm was tucked at her side. The right subclavian vein was approached, and finder needle was used, and the subclavian vein was easily cannulated and a wire threaded down to the superior vena cava under fluoroscopy. The wire was clipped to the drape, and an infraclavicular pocket was made about 3 cm in length. Incision was made, and the infraclavicular pocket was dissected using the electrocautery for hemostasis. The catheter was cut to the appropriate length and attached to the Port-A-Cath chamber. The Port-A-Cath chamber was placed into the infraclavicular pocket and secured in place using 2 separate Prolene sutures. At this point, the Tear Away sheath introducer was placed over the wire under fluoroscopy, and the dilator was removed. The catheter was threaded down to the Tear Away sheath, and the Tear Away sheath was torn away leaving the catheter in good position in the superior vena cava. The Port-A-Cath chamber was then accessed using the Lu needle and had excellent blood return. It was flushed with dilute heparin at 10 units/mL. At this point, the Port-A-Cath chamber was accessed and flushed with 1.5 mL of concentrated heparin at 1000 units/mL. Hemostasis was achieved, and the wound was closed using interrupted 3-0 deep dermal Vicryl suture and a running 4-0 subcuticular Monocryl suture. Dermabond was placed over the skin. At this point, the breast was re-prepped using Betadine. The barrel dedenting machine operator was removed after removing a small ellipse of necrotic skin over the midline wound. The barrel dedenting machine operator was removed, and the Cortiva acellular dermal matrix was completely excised with the barrel dedenting machine operator. There was noted to be no gross infection, just a lot of serosanguineous fluid, which was drained, and the wound was copiously irrigated with antibiotic bacitracin solution. Hemostasis was achieved, and the posterior wall over the muscle was scored. Electrocautery was used for hemostasis. At this point, a 15-Afghan Reggie drain was placed into the wound and brought through separate stab incisions on the lateral skin flap and secured in place using a 3-0 nylon suture. The skin was then closed using interrupted 3-0 deep dermal Vicryl suture and a running 4-0 subcuticular Biosyn suture. Mastisol, Steri-Strips applied over this wound and sterile dressing and compressive binder was placed over the patient. The drain was placed on J-P self-bulb suction. The patient had the laryngeal mask airway tube removed at the end of the case and will be recovered in the post anesthesia care unit. All sponge and needle counts were correct at this point of the case. Estimated blood loss was about 20 mL. She was hemodynamically stable throughout. The patient will be recovered and discharged home the same day and will record J-P output. She is planned to start chemotherapy in about 4 days and will be kept on Cipro. She will follow up in the office in 1 week for a formal wound and pathology check. Postoperative chest x-ray will be performed postoperatively. DENIS SEALS M.D. [id number]
--- NOTE | 2019-05-24 17:33 | PATH ---
Surgical Pathology Report Patient Name: MINDA CRUZ [facility]. Rec. #: [id number] /Age/Gender: 1970 (Age: 48) / F Account: [id number] Location: [facility] Taken: 05/20/2019 Received: 05/20/2019 Reported: 05/24/2019 Physicians: Bandar Rust M.D. Specimen(s) Received A: RIGHT CHEST TISSUE CREDIT CARD ASSOCIATE B: RIGHT CHEST DEBRIDEMENT, CORTIVA Clinical History History of bilateral breast cancer, nonhealing right chest wall wound Final Diagnosis A. CHEST TISSUE CREDIT CARD ASSOCIATE, RIGHT, REMOVAL: TISSUE CREDIT CARD ASSOCIATE. MACROSCOPIC DIAGNOSIS. B. CHEST DEBRIDEMENT, RIGHT, CORTIVA, EXCISION: DENSE FIBROCONNECTIVE TISSUE WITH AREAS OF MARKED ACUTE AND CHRONIC INFLAMMATION AND NECROSIS. Electronically Signed Olivia Beltran M.D. Gross Description A. Received fresh labeled "right chest tissue director of academic," is a 14.5 x 13.0 x 2.5 cm clear, rubbery foreign body, consistent with a breast tissue director of academic. No soft tissue is present. No sections are submitted, gross only. B. Received in formalin labeled "right chest debridement, cortiva," is an 11.5 x 10.0 x 1.5 cm aggregate of ward-corcoran, necrotic portions of soft tissue. Poultry Offal Icer sections are submitted in one cassette. /05/21/2019 [facility]05/21/2019
== END 2019-05-20 12:15 | disposition home or self-care (01) ==
LOC: FASU 06:18
PROVIDERS: ATTEND Surgery Surgical Oncology
PROC: B518ZZA Fluoroscopy of Superior Vena Cava, Guidance (ICD-10-PCS; 2019-05-20)
PROC: 0HPT0NZ Removal of Tissue Expander from Right Breast, Open Approach (ICD-10-PCS; 2019-05-20)
PROC: 02HV33Z Insertion of Infusion Device into Superior Vena Cava, Percutaneous Approach (ICD-10-PCS; principal; 2019-05-20 08:13)
DX: C50.911 Malignant neoplasm of unspecified site of right female breast (principal); C50.912 Malignant neoplasm of unspecified site of left female breast; Z17.0 Estrogen receptor positive status [ER+]; Z90.13 Acquired absence of bilateral breasts and nipples; Z80.3 Family history of malignant neoplasm of breast
CPT/HCPCS: 11971; 36561; 77001; C1788; 71045-TC-FY; 81025; 88300-TC; 88304-TC; 94760; J0131; J1644